=== PATIENT | female | born 1990 | race Caucasian/White ===

== ENCOUNTER 2018-06-30 13:47 | Emergency (ER) | payer BC, OTHER ==
[2018-06-30 13:56] VITALS: BMI 23.4
[2018-06-30 13:57] VITALS: BP 118/81; PULSE 80; RESP 18; TEMP 98.6; O2SAT 100
--- NOTE | 2018-06-30 14:49 | C.PDOC ---
History Of Present Illness 28 year old female presents to the ER with a complaint of right arm pain after the head board of her bed fell and landed on her arm [employer]. Patient reports taking advil [employer]. Denies weakness or numbness. Time Seen by Provider: 06/30/18 14:01 Chief Complaint (Nursing): Upper Extremity Problem/Injury History Per: Patient History/Exam Limitations: no limitations Onset/Duration Of Symptoms: Hrs Current Symptoms Are (Timing): Still Present Recent travel outside of the [place]: No Past Medical History Reviewed: Historical Data, Nursing Documentation, Vital Signs Vital Signs: Last Vital Signs Temp 98.6 F 06/30/18 13:56 Pulse 80 06/30/18 13:56 Resp 18 06/30/18 13:56 BP 118/81 06/30/18 13:56 Pulse Ox 100 06/30/18 15:37 - Medical History PMH: Asthma Family History: States: Unknown Family Hx - Social History Hx Alcohol Use: No Hx Substance Use: No - Immunization History Hx Tetanus Toxoid Vaccination: No Hx Influenza Vaccination: No Hx Pneumococcal Vaccination: No Review Of Systems Musculoskeletal: Positive for: Arm Pain Neurological: Negative for: Weakness, Numbness Physical Exam - Physical Exam Appears: Non-toxic Skin: Normal Color, Warm, Dry Head: Atraumatic, Normacephalic Eye(s): bilateral: Normal Inspection Extremity: Normal ROM (x4), Capillary Refill (<2 seconds), Other (Tenderness to right lateral elbow) Pulses: Left Radial: Normal, Right Radial: Normal Neurological/Psych: Oriented x3, Normal Speech, Normal Motor, Normal Sensation ED Course And Treatment O2 Sat by Pulse Oximetry: 100 (Room air) Pulse Ox Interpretation: Normal - Other Rad Right forearm x-ray X-Ray: Interpreted by Me, Viewed By Me Right elbow x-ray X-Ray: Interpreted by Me, Viewed By Me Medical Decision Making Medical Decision Making: Right forearm x-ray and right elbow x-ray ordered, results were negative. Sling was applied by technology officer. Will discharge home with Rx and instructions to follow up with PMD. Disposition - Disposition Referrals: [facility] [Outside] Disposition: HOME/ ROUTINE Disposition Time: 15:33 Condition: GOOD Additional Instructions: Follow up with the medical doctor within 1-2 days, return if worsened. Prescriptions: Acetaminophen [Tylenol] 325 mg PO Q6 PRN #30 tab PRN Reason: Pain, Mild (1-3) Instructions: Elbow Sprain (DC) Forms: [employer] ([place]) - Clinical Impression Clinical Impression: Elbow contusion - PA / [employer] / Resident Statement MD/DO has reviewed & agrees with the documentation as recorded. - Scribe Statement The provider has reviewed the documentation as recorded by the Scribe Danie Lindsey All medical record entries made by the Scribe were at my direction and personally dictated by me. I have reviewed the chart and agree that the record accurately reflects my personal performance of the history, physical exam, medical decision making, and the department course for this patient. I have also personally directed, reviewed, and agree with the discharge instructions and disposition.
--- NOTE | 2018-06-30 15:39 | RAD ---
Date of service: 06/30/2018 PROCEDURE: Radiographs of the right elbow. HISTORY: arm injury, pain to lateral elbow COMPARISON: No prior. FINDINGS: BONES: No acute fracture. JOINTS: Unremarkable. SOFT TISSUES: Normal. JOINT EFFUSION: None. OTHER FINDINGS: None. IMPRESSION: No demonstrated fracture or dislocation.
--- NOTE | 2018-06-30 15:40 | RAD ---
PROCEDURE: Radiographs of the Right Forearm HISTORY: Injury COMPARISON: None available. TECHNIQUE: Frontal and lateral views obtained. FINDINGS: BONES: Bone alignment and mineralization are normal. There is no acute displaced fracture or bone destruction. JOINT SPACES: Unremarkable. OTHER FINDINGS: None. IMPRESSION: No acute fracture or dislocation.
== END 2018-06-30 15:40 | disposition home or self-care (01) ==
LOC: C.ER 13:47
DX: S50.01XA Contusion of right elbow, initial encounter (principal); W22.8XXA Striking against or struck by other objects, initial encounter